=== PATIENT | female | born 1950 | race Caucasian/White ===

== ENCOUNTER 2016-12-04 10:37 | Outpatient (CLI) | payer MEDICARE | END 2016-12-04 23:59 | DX: E03.9 Hypothyroidism, unspecified (principal); E11.65 Type 2 diabetes mellitus with hyperglycemia; Z79.899 Other long term (current) drug therapy; E78.2 Mixed hyperlipidemia ==

== ENCOUNTER 2016-12-23 06:14 | Day surgery (SDC) | payer MEDICARE, OTHER ==
[2016-12-23] MEDS ORDERED: LACTATED RINGERS 1,000 ML IV ONE (06:38)
[2016-12-23] MEDS ORDERED: BUPIVACAINE 0.25% PF 30 ML VIAL SUBQ ONE ×2 (07:40→07:44)
[2016-12-23] MEDS ORDERED: KETOROLAC 30 MG/ML VIAL IVP ONE (08:06)
[2016-12-23] MEDS ORDERED: PROPOFOL 200 MG/20 ML VIAL IVP ONE (08:06)
[2016-12-23] MEDS ORDERED: MIDAZOLAM 2 MG/2 ML VIAL IVP ONE (08:06)
[2016-12-23] MEDS ORDERED: LIDOCAINE-MPF 2% 5 ML VIAL IM ONE (08:06)
== END 2016-12-23 06:15 | disposition home or self-care (01) ==
PROC: 0XBJ0ZZ Excision of Right Hand, Open Approach (ICD-10-PCS; principal; 2016-12-23 07:30)
DX: M71.341 Other bursal cyst, right hand (principal); E11.9 Type 2 diabetes mellitus without complications; E78.5 Hyperlipidemia, unspecified; E89.0 Postprocedural hypothyroidism; Z83.3 Family history of diabetes mellitus; Z88.2 Allergy status to sulfonamides; Z80.9 Family history of malignant neoplasm, unspecified; Z79.84 Long term (current) use of oral hypoglycemic drugs
CPT/HCPCS: 26160; J7120

== ENCOUNTER 2017-02-22 10:16 | Emergency (ER) | payer MEDICARE, OTHER ==
--- NOTE | 2017-02-22 11:03 | XRAY Preliminary Report ---
Exam: XR Foot 3 View RT IMPRESSION: Acute fracture distal aspect of fifth proximal phalanx. [facility] SITE ID: [id number]
--- NOTE | 2017-02-22 11:06 | XRAY Report ---
EXAM: RIGHT FOOT RADIOGRAPHY EXAM DATE: 02/22/2017 10:40 AM. CLINICAL HISTORY: Horse stepped on right foot, fourth and fifth metatarsal pain distally. COMPARISON: None. TECHNIQUE: 3 views. FINDINGS: Bones: An acute fracture through the distal metadiaphysis of the fifth proximal phalanx evident displ aced by approximately 12 millimeters. Mild apex plantar angulation noted. The metatarsals are intact . Joints: Normal. No subluxations. Soft Tissues: Normal. No soft tissue swelling. IMPRESSION: Acute fracture distal aspect of fifth proximal phalanx. [facility] Referring Provider Line: [phone] SITE ID: [id number]
--- NOTE | 2017-02-22 12:00 | ED Physician Documentation ---
PD HPI LOWER EXT INJURY - Stated complaint Stated Complaint: R FOOT INJ - Chief complaint Chief Complaint: Ext Problem - History obtained from History obtained from: Patient - History of Present Illness PD HPI LOW EXT INJURY LOCATION: Right, Toe Type of injury: Crush Where injury occurred: Home Timing - onset: Enter time (829), Today Timing - duration: Hours Timing - details: Abrupt onset, Still present Improved by: Rest, Immobilization Worsened by: Moving, Palpating Associated symptoms: Swelling. No: Weakness, Numbness Contributing factors: No: Anticoagulated Similar symptoms before: Has not had sx before Recently seen: Not recently seen - Additional information Additional information: 66 y/o female was feeding her horse when the horse stood on her foot and she could hear the bone break. She has pain to weight bearing and is comfortable with 1-2 pain at rest. Review of Systems Constitutional: denies: Fever Nose: denies: Congestion Throat: denies: Sore throat Respiratory: denies: Cough GI: denies: Vomiting Skin: denies: Rash Musculoskeletal: reports: Extremity pain, Pain with weight bearing. denies: Neck pain, Back pain Neurologic: denies: Generalized weakness, Focal weakness, Numbness PD PAST MEDICAL HISTORY - Past Medical History Past Medical History: Yes Cardiovascular: None Respiratory: None Endocrine/Autoimmune: Type 2 diabetes, HyPOthyroidism GI: None : Kidney stones HEENT: Macular degeneration Psych: None Musculoskeletal: None Derm: None - Past Surgical History General: Other /MACHINE II CUTTER: Hysterectomy, Oophrectomy, Other - Present Medications Home Medications: Ambulatory Orders Medication Instructions Recorded Confirmed Atorvastatin Calcium 20 mg PO DAILY 12/19/16 02/22/17 Cholecalciferol (Vitamin D3) 2,000 units PO DAILY 12/19/16 02/22/17 [Vitamin D3] Citalopram [CeleXA] 20 mg PO DAILY 12/19/16 02/22/17 Estradiol [Estrace] 0.5 mg PO DAILY 12/19/16 02/22/17 Levothyroxine Sodium 125 mcg PO DAILY 12/19/16 02/22/17 Metformin HCl [Fortamet] 500 mg PO BID 12/19/16 02/22/17 - Allergies Allergies/Adverse Reactions: Allergies Allergy/AdvReac Type Severity Reaction Status Date / Time Sulfa (Sulfonamide Allergy Rash Verified 12/19/16 16:33 Antibiotics) cinnamon AdvReac Hives Verified 12/19/16 16:34 paper tape AdvReac Itching Uncoded 12/19/16 16:33 - Social History Does the pt smoke?: No Smoking Status: Never smoker PD ED PE NORMAL - Vitals Vital signs reviewed: Yes (hypertensive ) - General General: No acute distress, Well developed/nourished - HEENT HEENT: Atraumatic - Respiratory Respiratory: No respiratory distress - Derm Derm: Normal color, Warm and dry, No rash - Extremities Extremities: No deformity, Other (There is ecchymosis and tenderness with mild swelling over the right 5th digit. ) - Neuro Neuro: No motor deficit, No sensory deficit - Psych Psych: Normal mood, Normal affect Results - Vitals Vitals: Vital Signs - 24 hr 02/22/17 10:23 Temperature 36.7 C Heart Rate 70 Respiratory 17 Rate Blood Pressure 143/83 H O2 Saturation 98 Oxygen O2 Source Room air - Rads (name of study) right foot Radiology: Prelim report reviewed (Impression 1 acute fracture distal aspect of the fifth proximal phalanx.), EMP read indepedently, See rad report PD MEDICAL DECISION MAKING - ED course Complexity details: reviewed results, re-evaluated patient, considered differential, d/w patient ED course: 66 y/o female with a fracture to the 5th toe is given a metatarsal padding in her shoe for ambulation. Departure - Departure Disposition: 01 Home, Self Care Clinical Impression: Toe fracture, right Qualifiers: Encounter type: initial encounter Toe: lesser toe Fracture type: closed Phalanx : proximal Fracture alignment: nondisplaced Qualified Code(s): S92.514A - Nondisplaced fracture of proximal phalanx of right lesser toe(s), initial encounter for closed fracture Condition: Stable Instructions: ED Fx Toe Closed Follow-Up: David Roberson MD [Primary Care Provider] - Comments: Today in the Emergency Department your blood pressure was elevated. This can happen from the stress of the visit itself, from a current illness or circumstance or from uncontrolled hypertension. If you take blood pressure medications take your usual mediations, have your blood pressure re-checked in an appropriate setting and follow up any elevation with your primary care doctor.
[2017-02-22 12:21] VITALS: BP 156/92
== END 2017-02-22 12:21 | disposition home or self-care (01) ==
LOC: ED 10:16
DX: S92.514A Nondisplaced fracture of proximal phalanx of right lesser toe(s), initial encounter for closed fracture (principal); W55.19XA Other contact with horse, initial encounter; Y93.K9 Activity, other involving animal care; Y92.009 Unspecified place in unspecified non-institutional (private) residence as the place of occurrence of the external cause; E11.9 Type 2 diabetes mellitus without complications; Z79.84 Long term (current) use of oral hypoglycemic drugs; R03.0 Elevated blood-pressure reading, without diagnosis of hypertension
CPT/HCPCS: 99283

== ENCOUNTER 2017-03-31 15:21 | Outpatient (CLI) | payer MEDICARE, OTHER ==
--- NOTE | 2017-04-01 09:27 | XRAY Report ---
THREE VIEW RIGHT FOOT: 03/31/2017 CLINICAL INDICATION: Pain. COMPARISON: 02/22/2017. FINDINGS: AP, lateral, and oblique views of the right foot demonstrate stable alignment of the fract ure of the proximal phalanx of the 5th toe. No new fracture is seen. No radiopaque foreign body is se en in the soft tissues. Some callus formation is present at the 5th toe fracture site. IMPRESSION: STABLE ALIGNMENT OF FRACTURE OF THE PROXIMAL PHALANX OF THE 5TH TOE, WITH SOME CALLUS FO RMATION. JOB #: [id number] EXT JOB #:[id number]
== END 2017-03-31 15:22 | disposition home or self-care (01) ==
LOC: DI 15:21
PROVIDERS: ATTEND Physician Assistant Medical
DX: S92.511D Displaced fracture of proximal phalanx of right lesser toe(s), subsequent encounter for fracture with routine healing (principal)

== ENCOUNTER 2017-06-18 14:39 | Outpatient (CLI) | payer MEDICARE, OTHER | END 2017-06-18 14:40 | disposition home or self-care (01) | LOC: LAB.R 14:39 | PROVIDERS: ATTEND Internal Medicine | DX: N30.00 Acute cystitis without hematuria (principal) | CPT/HCPCS: 87086 ==

== ENCOUNTER 2017-10-13 06:16 | Day surgery (SDC) | payer MEDICARE ==
[2017-10-13] MEDS ORDERED: LACTATED RINGERS 1,000 ML IV ONE (06:50)
[2017-10-13] MEDS ORDERED: ceFAZolin 1 GM VIAL ONE (07:27)
[2017-10-13] MEDS ORDERED: LIDOCAINE 1% 50 ML MDV SUBQ ONE ×2 (08:00)
[2017-10-13] MEDS ORDERED: BUPIVACAINE 0.25% PF 30 ML VIAL SUBQ ONE ×2 (08:00)
[2017-10-13] MEDS ORDERED: MIDAZOLAM 2 MG/2 ML VIAL IVP ONE (08:50)
[2017-10-13] MEDS ORDERED: PROPOFOL 200 MG/20 ML VIAL IVP ONE (08:50)
[2017-10-13] MEDS ORDERED: ONDANSETRON 4 MG/2 ML VIAL IVP ONE (08:50)
[2017-10-13] MEDS ORDERED: fentaNYL 100 MCG/2 ML VIAL IVP ONE (08:50)
[2017-10-13] MEDS ORDERED: KETOROLAC 15 MG/ML VIAL ONE (09:32)
[2017-10-13] MEDS: HYDROcod/ACETAM 5/325 MG TABLET ONE ×2 (10:00→10:01)
[2017-10-13 10:22] VITALS: BP 145/70
--- NOTE | 2017-10-13 13:50 | OPERATIVE REPORT ---
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 PROCEDURE PERFORMED: Right index finger distal interphalangeal joint arthrodesis. SURGEON: Josie Boss MD CUPOLA WORKER: General with local. INDICATION FOR SURGERY: The patient is a 66-year-old female with progressive enlargement and pain in the right index finger DIP joint where she is found to have on x-ray severe osteoarthritis. The patient has failed nonoperative care and surgery is recommended with fusion of the joint for pain relief. DESCRIPTION OF OPERATIVE PROCEDURE: The patient was taken to the operating room, was given a general anesthetic. Her hand was sterilely prepped and draped in standard fashion. Her finger DIP joint was exposed with a dorsal Y-shaped incision centered on the DIP joint. The incision was taken through skin and subcutaneous tissue to the dorsum of the joint, the extensor tendon divided transversely to expose the underlying joint where worn surfaces were encountered and osteophytes. These were trimmed and small ganglion cyst adjacent to the joint were debrided. The joint was shaped to planed raw bone surface on both the middle phalanx and distal phalanx that coapted nicely with a slight flexion and at this position fusion internal fixation was applied utilizing the Cas Whipple mini screw with the guide pin placed retrograde out the tip of the finger tip and then redriven into the middle phalanx and appropriate drilling to depth was performed and a proper screw length selected and inserted with excellent compression obtained. The screw head was set at or below the bone surface as so as not to cause pressure or pain. The fusion site was checked and was nicely approximated with excellent compression. The guide pin was removed. The wound irrigated. Closure was with interrupted 4-0 nylon in the dorsal skin. Sterile dressings were applied after infiltrating with a digital block on the volar and dorsal surface of the finger with 1% lidocaine and 0.25% Marcaine, approximately total volume of 8 mL. A nicely well-padded dressing and splint were applied, and the patient was taken to recovery room in stable condition. ESTIMATED BLOOD LOSS: Minimal. COMPLICATIONS: None. COUNTS: Sponge and needle counts correct. TD: 10/13/2017 13:49
== END 2017-10-13 06:17 | disposition home or self-care (01) ==
LOC: SDS 06:16
PROVIDERS: ATTEND Orthopaedic Surgery
PROC: [UNRECOGNIZED PROCEDURE] (principal; 2017-10-13 07:30)
DX: M19.041 Primary osteoarthritis, right hand (principal)
CPT/HCPCS: 26860; A9270; J7120

== ENCOUNTER 2017-11-11 11:15 | Outpatient (CLI) | payer MEDICARE | END 2017-11-11 11:16 | disposition home or self-care (01) | LOC: LAB.R 11:15 | PROVIDERS: ATTEND Physician Assistant Medical | DX: N30.00 Acute cystitis without hematuria (principal) | CPT/HCPCS: 87086 ==

== ENCOUNTER 2017-12-08 08:00 | Outpatient (CLI) | payer MEDICARE, OTHER ==
[2017-12-08 12:54] LABS: BILIRUBIN,URINE NEGATIVE (NEGATIVE); GLUCOSE, URINE (UA) NEGATIVE (NEGATIVE); KETONES,URINE (UA) NEGATIVE (NEGATIVE); LEUKOCYTE ESTERASE, URINE NEGATIVE (NEGATIVE); NITRITE,URINE POSITIVE (NEGATIVE); OCCULT BLOOD,URINE NEGATIVE (NEGATIVE); PROTEIN,URINE 30 mg/dL (NEGATIVE); UROBILINOGEN,URINE 2 E.U./dL (NORMAL)
[2017-12-08 13:02] LABS: CLARITY,URINE HAZY (CLEAR)
[2017-12-08 13:03] LABS: BACTERIA,URINE Moderate /HPF (None Seen); RBC,URINE None Seen /HPF (0-5); SQUAMOUS EPITHELIAL CELL,UR MANY Squamous (<= Few)
== END 2017-12-08 08:01 | disposition home or self-care (01) ==
LOC: LAB.WCP 08:00
PROVIDERS: ATTEND Nurse Practitioner Primary Care
DX: R35.0 Frequency of micturition (principal)
CPT/HCPCS: 81001; 81003; 87086

== ENCOUNTER 2017-12-30 10:12 | Outpatient (CLI) | payer MEDICARE, OTHER ==
[2017-12-30 13:04] LABS: BASOPHILS # (AUTO) 0.1 10^3/uL (0.0-0.1); BASOPHILS % (AUTO) 0.9 %; EOSINOPHILS # (AUTO) 0.1 10^3/uL (0.0-0.7); EOSINOPHILS % (AUTO) 1.8 %; HGB - HEMOGLOBIN 13.4 g/dL (12.0-16.0); LYMPHOCYTES # (AUTO) 2.4 10^3/uL (1.5-3.5); LYMPHOCYTES % (AUTO) 34.1 %; MEAN CORPUSCULAR HEMOGLOBIN 30.3 pg (27.0-31.0); MEAN CORPUSCULAR VOLUME 91.6 fL (81.0-99.0); MEAN PLATELET VOLUME 7.5 fL (7.9-10.8); MONOCYTES # (AUTO) 0.4 10^3/uL (0.0-1.0); MONOCYTES % (AUTO) 5.5 %; NEUTROPHILS # (AUTO) 4.2 10^3/uL (1.5-6.6); NEUTROPHILS % (AUTO) 57.7 %; PLT - PLATELET COUNT 312 10^3/uL (130-450); RED BLOOD COUNT 4.41 10^6/uL (4.20-5.40); RED CELL DISTRIBUTION WIDTH 14.8 % (12.0-15.0); WHITE BLOOD COUNT 7.2 x10^3/uL (4.8-10.8)
[2017-12-30 13:29] LABS: ALBUMIN 4.4 g/dL (3.2-5.5); ALBUMIN/GLOBULIN RATIO 1.8 (1.0-2.2); ALKALINE PHOSPHATASE 73 IU/L (42-121); ALT ALANINE AMINOTRANSFERASE 19 IU/L (10-60); AST ASPARTATE AMINOTRANSFERASE 18 IU/L (10-42); BILIRUBIN,TOTAL 0.3 mg/dL (0.2-1.0); BUN - BLOOD UREA NITROGEN 18 mg/dL (6-20); CARBON DIOXIDE - CO2 27 mmol/L (21-32); CHLORIDE 104 mmol/L (101-111); CHOL/HDL RATIO 2.7 (<4.4); CHOLESTEROL 147 mg/dL; CREATININE 0.7 mg/dL (0.4-1.0); GFR - MDRD 84 (>89); GLUCOSE 94 mg/dL (70-100); HDL CHOLESTEROL 55 mg/dL; LDL CHOLESTEROL,CALCULATED 60 mg/dL; LDL/HDL RATIO 1.1 (<4.4); SODIUM 137 mmol/L (135-145); TOTAL PROTEIN 6.8 g/dL (6.7-8.2); VLDL CHOLESTEROL 32 mg/dL
[2017-12-30 13:40] LABS: HB2 TOTAL 14.5 g/dL; HEMOGLOBIN A1C 0.57 g/dL; HEMOGLOBIN A1C % 5.7 % (4.6-6.2)
== END 2017-12-30 10:13 | disposition home or self-care (01) ==
LOC: LAB.R 10:12
PROVIDERS: ATTEND Internal Medicine
DX: E78.5 Hyperlipidemia, unspecified (principal); E11.9 Type 2 diabetes mellitus without complications; E03.9 Hypothyroidism, unspecified
CPT/HCPCS: 80053; 80061; 83036; 83721; 84443; 85025

== ENCOUNTER 2018-01-05 11:28 | Outpatient (CLI) | payer MEDICARE, OTHER ==
--- NOTE | 2018-01-13 15:11 | Mammography Report ---
DIGITAL SCREENING MAMMOGRAM: 01/05/2018 CLINICAL INDICATION: A 67-year-old with history of benign left breast biopsy for screening. COMPARISON: Films from [place], [place] dated 10/17/2015, 06/03/2014. TECHNIQUE: Routine CC and MLO projections were obtained of the breasts. FINDINGS: The breasts again demonstrate scattered fibroglandular densities bilaterally. Punctate, typically benign calcifications are present. No suspicious masses, clustered microcalcifications, or regions of architectural distortion are identified. IMPRESSION: BENIGN FINDINGS. RECOMMENDATION: Routine annual screening unless otherwise clinically indicated. BI-RADS CATEGORY 2 - BENIGN FINDINGS. STANDARD QUALIFYING STATEMENTS: 1. This examination was reviewed with the aid of Computer-Aided Detection (CAD). 2. A negative or benign imaging report should not delay biopsy if clinically suspicious findings are present. Consider surgical consultation if warranted. More than 5% of cancers are not identified by imaging. 3. Dense breasts may obscure an underlying neoplasm. TD: 01/13/2018 15:07
== END 2018-01-05 11:29 | disposition home or self-care (01) ==
LOC: DI 11:28
PROVIDERS: ATTEND Internal Medicine
DX: Z12.31 Encounter for screening mammogram for malignant neoplasm of breast (principal)
CPT/HCPCS: 77067

== ENCOUNTER 2018-02-08 07:02 | Day surgery (SDC) | payer MEDICARE, OTHER ==
[2018-02-08] MEDS ORDERED: LACTATED RINGERS 1,000 ML IV ONE (07:38)
[2018-02-08] MEDS ORDERED: fentaNYL 250 MCG/5 ML VIAL IVP ONE (08:24)
[2018-02-08] MEDS ORDERED: MIDAZOLAM 2 MG/2 ML VIAL IVP ONE (08:24)
[2018-02-08 09:17] VITALS: BP 105/47
== END 2018-02-08 07:03 | disposition home or self-care (01) ==
LOC: SDS 07:02
PROVIDERS: ATTEND Surgery
PROC: 0DBH8ZX Excision of Cecum, Via Natural or Artificial Opening Endoscopic, Diagnostic (ICD-10-PCS; principal; 2018-02-08 08:00)
DX: Z12.11 Encounter for screening for malignant neoplasm of colon (principal); D12.0 Benign neoplasm of cecum; K64.8 Other hemorrhoids; E78.5 Hyperlipidemia, unspecified; E11.9 Type 2 diabetes mellitus without complications; Z79.84 Long term (current) use of oral hypoglycemic drugs
CPT/HCPCS: 45380; J3010; J7120; 88305

== ENCOUNTER 2018-03-15 08:00 | Outpatient (CLI) | payer MEDICARE, OTHER | END 2018-03-15 08:01 | LOC: LAB.R 08:00 | PROVIDERS: ATTEND Internal Medicine | DX: E03.9 Hypothyroidism, unspecified (principal) | CPT/HCPCS: 84443 ==

== ENCOUNTER 2018-04-09 09:35 | Outpatient (CLI) | payer MEDICARE, OTHER | END 2018-04-09 09:36 | disposition home or self-care (01) | LOC: LAB.R 09:35 | PROVIDERS: ATTEND Nurse Practitioner Primary Care | DX: M79.659 Pain in unspecified thigh (principal); M75.42 Impingement syndrome of left shoulder; M25.512 Pain in left shoulder | CPT/HCPCS: 85651; 86140 ==

== ENCOUNTER 2018-06-01 08:00 | Outpatient (CLI) | payer MEDICARE, OTHER | END 2018-06-01 08:01 | disposition home or self-care (01) | LOC: LAB.R 08:00 | PROVIDERS: ATTEND Internal Medicine | DX: R35.0 Frequency of micturition (principal) | CPT/HCPCS: 87086; 87181 ==

== ENCOUNTER 2018-06-30 13:55 | Outpatient (CLI) | payer MEDICARE, OTHER | END 2018-06-30 13:56 | disposition home or self-care (01) | LOC: LAB.R 13:55 | PROVIDERS: ATTEND Internal Medicine | DX: E03.9 Hypothyroidism, unspecified (principal) | CPT/HCPCS: 84443 ==

== ENCOUNTER 2018-09-23 11:05 | Outpatient (CLI) | payer MEDICARE, OTHER | END 2018-09-23 23:59 | disposition home or self-care (01) | LOC: LAB.R 11:05 | PROVIDERS: ATTEND Internal Medicine | DX: E03.9 Hypothyroidism, unspecified (principal) | CPT/HCPCS: 84443 ==

== ENCOUNTER 2019-03-14 14:20 | Outpatient (CLI) | payer MEDICARE, OTHER ==
[2019-03-14 14:47] LABS: BASOPHILS # (AUTO) 0.1 10^3/uL (0.0-0.1); BASOPHILS % (AUTO) 0.7 %; EOSINOPHILS # (AUTO) 0.1 10^3/uL (0.0-0.7); EOSINOPHILS % (AUTO) 1.4 %; HGB - HEMOGLOBIN 13.6 g/dL (12.0-16.0); LYMPHOCYTES # (AUTO) 2.2 10^3/uL (1.5-3.5); LYMPHOCYTES % (AUTO) 30.7 %; MEAN CORPUSCULAR HEMOGLOBIN 30.2 pg (27.0-31.0); MEAN CORPUSCULAR HGB CONC 31.4 g/dL (32.0-36.0); MEAN PLATELET VOLUME 9.6 fL (7.9-10.8); MONOCYTES # (AUTO) 0.5 10^3/uL (0.0-1.0); MONOCYTES % (AUTO) 6.5 %; NEUTROPHILS # (AUTO) 4.3 10^3/uL (1.5-6.6); NEUTROPHILS % (AUTO) 60.4 %; PLT - PLATELET COUNT 280 10^3/uL (130-450); RED BLOOD COUNT 4.51 10^6/uL (4.20-5.40); RED CELL DISTRIBUTION WIDTH 14.3 % (12.0-15.0); WHITE BLOOD COUNT 7.1 x10^3/uL (4.8-10.8)
[2019-03-14 15:05] LABS: ALBUMIN 4.3 g/dL (3.2-5.5); ALBUMIN/GLOBULIN RATIO 1.4 (1.0-2.2); ALKALINE PHOSPHATASE 79 IU/L (42-121); ALT ALANINE AMINOTRANSFERASE 30 IU/L (10-60); AST ASPARTATE AMINOTRANSFERASE 25 IU/L (10-42); BUN - BLOOD UREA NITROGEN 17 mg/dL (6-20); CALCIUM 10.2 mg/dL (8.5-10.3); CARBON DIOXIDE - CO2 26 mmol/L (21-32); CHLORIDE 103 mmol/L (101-111); CHOL/HDL RATIO 3.3 (<4.4); CHOLESTEROL 157 mg/dL; CREATININE 0.8 mg/dL (0.4-1.0); GFR - MDRD 72 (>89); GLUCOSE 118 mg/dL (70-100); HDL CHOLESTEROL 48 mg/dL; LDL CHOLESTEROL,CALCULATED 73 mg/dL; LDL/HDL RATIO 1.5 (<4.4); SODIUM 141 mmol/L (135-145); TOTAL PROTEIN 7.4 g/dL (6.7-8.2); VLDL CHOLESTEROL 36 mg/dL
[2019-03-14 15:14] LABS: CREATININE,URINE 170.4 mg/dL; MICROALBUM/CREATININE RATIO,UR 6.5 ug/mg (<30.0); MICROALBUMIN,URINE 1.1 mg/dL (0-300.0)
[2019-03-14 15:16] LABS: THYROID STIMULATING HORMONE 0.93 uIU/mL (0.34-5.60)
[2019-03-14 16:05] LABS: HB2 TOTAL 13.9 g/dL; HEMOGLOBIN A1C 0.6 g/dL; HEMOGLOBIN A1C % 6.1 % (4.6-6.2)
== END 2019-03-14 14:21 | disposition home or self-care (01) ==
LOC: LAB 14:20
PROVIDERS: ATTEND Nurse Practitioner
DX: E78.5 Hyperlipidemia, unspecified (principal); E11.9 Type 2 diabetes mellitus without complications; E03.9 Hypothyroidism, unspecified; R53.83 Other fatigue
CPT/HCPCS: 36415; 80053; 80061; 82043; 82306; 82570; 82607; 83036; 83721; 84443; 85025

== ENCOUNTER 2019-03-17 16:44 | Outpatient (CLI) | payer MEDICARE, OTHER ==
--- NOTE | 2019-03-18 08:48 | Mammography Report ---
Reason: SCREENING MAMMO Procedure Date: 03/17/2019 Accession Number: [id number] / [id number] Procedure: [facility] - Screening Mammo w/[facility] CPT Code: FULL RESULT: EXAM: Screening Mammo w/[facility] DATE: 03/17/2019 5:16 PM CLINICAL HISTORY: Screening encounter. History of excisional left breast biopsy with benign pathology. TECHNIQUE: (B) - Bilateral CC and MLO views were obtained. COMPARISON: 01/05/2018 through 06/03/2014. PARENCHYMAL PATTERN: (A) - The breast(s) demonstrate(s) scattered fibroglandular densities. FINDINGS: A left upper outer breast typically benign appearing intramammary lymph node demonstrates long-term stability. Postsurgical changes of the left breast are similarly stable. There are no suspicious masses, calcifications, or areas of distortion. IMPRESSION: Benign findings. BI-RADS category 2. RECOMMENDATION: (ANNUAL) - Recommend routine annual screening mammography. BI-RADS CATEGORY: (2) - Benign Findings. STANDARD QUALIFYING STATEMENTS: 1. This examination was not reviewed with the aid of Computer-Aided Detection (CAD). 2. A negative or benign imaging report should not preclude biopsy if clinically suspicious findings are present. 3. Dense breasts may obscure an underlying neoplasm. 4. This examination was reviewed with the aid of 3D breast imaging (tomosynthesis).
== END 2019-03-17 16:45 | disposition home or self-care (01) ==
LOC: DI 16:44
PROVIDERS: ATTEND Nurse Practitioner
DX: Z12.31 Encounter for screening mammogram for malignant neoplasm of breast (principal)
CPT/HCPCS: 77063; 77067

== ENCOUNTER 2020-02-29 14:30 | Outpatient (CLI) | payer MEDICARE, OTHER ==
[2020-02-29 19:16] LABS: BASOPHILS % (AUTO) 0.4 %; EOSINOPHILS # (AUTO) 0.1 10^3/uL (0.0-0.7); EOSINOPHILS % (AUTO) 1.3 %; HGB - HEMOGLOBIN 13.7 g/dL (12.0-16.0); LYMPHOCYTES # (AUTO) 2.2 10^3/uL (1.5-3.5); LYMPHOCYTES % (AUTO) 31.6 %; MEAN CORPUSCULAR HGB CONC 30.7 g/dL (32.0-36.0); MEAN CORPUSCULAR VOLUME 94.5 fL (81.0-99.0); MEAN PLATELET VOLUME 9.8 fL (7.9-10.8); MONOCYTES # (AUTO) 0.5 10^3/uL (0.0-1.0); MONOCYTES % (AUTO) 6.7 %; NEUTROPHILS # (AUTO) 4.2 10^3/uL (1.5-6.6); NEUTROPHILS % (AUTO) 59.7 %; PLT - PLATELET COUNT 285 10^3/uL (130-450); RED BLOOD COUNT 4.72 10^6/uL (4.20-5.40)
[2020-02-29 19:55] LABS: ALBUMIN 4.5 g/dL (3.2-5.5); ALBUMIN/GLOBULIN RATIO 2.4 (1.0-2.2); ALKALINE PHOSPHATASE 83 IU/L (42-121); ALT ALANINE AMINOTRANSFERASE 16 IU/L (10-60); AST ASPARTATE AMINOTRANSFERASE 14 IU/L (10-42); BUN - BLOOD UREA NITROGEN 19 mg/dL (6-20); CALCIUM 9.2 mg/dL (8.5-10.3); CARBON DIOXIDE - CO2 26 mmol/L (21-32); CHLORIDE 106 mmol/L (101-111); CHOL/HDL RATIO 2.7 (<4.4); CHOLESTEROL 132 mg/dL; CREATININE 0.8 mg/dL (0.4-1.0); GLUCOSE 108 mg/dL (70-100); HDL CHOLESTEROL 49 mg/dL; LDL CHOLESTEROL,CALCULATED 54 mg/dL; LDL/HDL RATIO 1.1 (<4.4); SODIUM 141 mmol/L (135-145); TOTAL PROTEIN 6.4 g/dL (6.7-8.2); VLDL CHOLESTEROL 29 mg/dL
[2020-02-29 20:01] LABS: HB2 TOTAL 14.1 g/dL; HEMOGLOBIN A1C 0.67 g/dL; HEMOGLOBIN A1C % 6.5 % (4.6-6.2)
[2020-02-29 20:46] LABS: FREE T4 (FREE THYROXINE) 1.45 ng/dL (0.58-1.64)
== END 2020-02-29 23:59 | disposition home or self-care (01) ==
LOC: LAB.WCP 14:30
PROVIDERS: ATTEND Nurse Practitioner
DX: F32.9 Major depressive disorder, single episode, unspecified (principal); I10 Essential (primary) hypertension; R53.83 Other fatigue; E11.9 Type 2 diabetes mellitus without complications; E78.5 Hyperlipidemia, unspecified; Z79.899 Other long term (current) drug therapy; E03.9 Hypothyroidism, unspecified; F41.9 Anxiety disorder, unspecified
CPT/HCPCS: 36415; 80053; 80061; 82306; 83036; 83721; 84439; 84443; 85025

== ENCOUNTER 2020-05-09 08:25 | Outpatient (CLI) | payer MEDICARE, OTHER ==
--- NOTE | 2020-05-10 07:15 | DEXA Report ---
PROCEDURE: Dexa Spine and/or Hip INDICATIONS: POST MENOPAUSAL TECHNIQUE: Dual energy x-ray absorptiometry (DXA) was performed on a [employer] System. Regions measur ed are the AP Spine, femoral neck, and if needed forearm. COMPARISON: None. FINDINGS: Lumbar Spine: Bone Mineral Density 1.257 g/cm/cm,T score 0.6. Left Hip: Bone Mineral Density 1.00 to g/cm/cm,T score 0.0. Left Femoral Neck: Bone Mineral Density 0.800 g/cm/cm, T score -1.7. (T score greater or equal to -1.0: NORMAL) (T score from -1.1 to -2.4: OSTEOPENIA) (T score less than or equal to -2.5 to: OSTEOPOROSIS) Impression: Osteopenia. Patients with diagnosis of osteoporosis or osteopenia should have regular bone mineral density assess ment. For those eligible for Medicare, routine testing is allowed once every 2 years. Testing frequ ency can be increased for patients who have rapidly progressing disease or for those who are receivin g medical therapy to restore bone mass. Reviewed by: Matthew Tam MD on 05/09/2020 10:09 AM PDT Approved by: Matthew Tam MD on 05/09/2020 10:09 AM PDT Station ID: [id number]
== END 2020-05-09 08:26 | disposition home or self-care (01) ==
LOC: DI 08:25
PROVIDERS: ATTEND Nurse Practitioner
DX: M85.88 Other specified disorders of bone density and structure, other site (principal)
CPT/HCPCS: 77080

== ENCOUNTER 2020-05-09 08:27 | Outpatient (CLI) | payer MEDICARE, OTHER ==
--- NOTE | 2020-05-09 12:56 | Mammography Report ---
BILATERAL DIGITAL SCREENING MAMMOGRAM 3D/2D: 05/09/2020 CLINICAL: Routine screening. Comparison is made to exams dated: 03/07/2019 mammogram, 01/05/2018 mammogram, 10/17/2015 mammogram, and 06/03/2014 mammogram - [facility]. There are scattered fibroglandular elements in b oth breasts. No significant masses, calcifications, or other findings are seen in either breast. There has been no significant interval change. IMPRESSION: NEGATIVE There is no mammographic evidence of malignancy. A 1 year screening mammogram is recommended. This exam was interpreted at Station ID: [id number]. NOTE: For mammograms, a report in lay terms will be sent to the patient. Approximately 15% of breast malignancies will not be visualized mammographically. In the management of a palpable breast mass, a negative mammogram must not discourage biopsy of a clinically suspicious lesion. Electronically Signed By: Navjot Campa M.D., jr/kiara:05/09/2020 09:32:30 ACR BI-RADS Category 1: Negative 3341F PARENCHYMAL PATTERN: (A) - The breast(s) demonstrate(s) scattered fibroglandular densities. BI-RADS CATEGORY: (1) - 1 RECOMMENDATION: (ANNUAL) - Recommend routine annual screening mammography. [id number] 1 year screening LATERALITY: (B)
== END 2020-05-09 08:28 | disposition home or self-care (01) ==
LOC: DI 08:27
PROVIDERS: ATTEND Nurse Practitioner
DX: Z12.31 Encounter for screening mammogram for malignant neoplasm of breast (principal)
CPT/HCPCS: 77063; 77067